=== PATIENT | female | born 1975 | race African-American/Black ===

== ENCOUNTER 2018-01-17 16:07 | Emergency (ER) | payer SELFPAY ==
[~2018-01-17] VITALS: Ht 170.2 cm; Wt 62.0 kg
[2018-01-17] MEDS ORDERED: LORAZEPAM 2MG/ML CPJ IV ONE (16:30)
[2018-01-17] MEDS ORDERED: HALOPERIDOL LACTATE 5MG/ML VIAL IM ONE ×2 (16:30→19:15)
[2018-01-18 00:43] VITALS: BP 121/80
== END 2018-01-18 00:44 | disposition home or self-care (01) ==
LOC: ER 16:07
DX: R41.82 Altered mental status, unspecified (principal); I10 Essential (primary) hypertension; F12.10 Cannabis abuse, uncomplicated
CPT/HCPCS: 96372; 96374; 99284; J1630; J2060; Z7610